=== PATIENT | female | born 1960 | race African-American/Black ===

== ENCOUNTER 2017-06-02 08:40 | Inpatient (IN) ==
[2017-07-07] MEDS ORDERED: FAMOTIDINE PB 20 MG/50 ML BAG IV ONE (06:00)
[2017-07-07] MEDS ORDERED: METOCLOPRAMIDE 10mg/2ml INJECTION IVP ONE (06:00)
[2017-07-07] MEDS ORDERED: DEXAMETHASONE 4 MG/ML INJECTION IVP ONE (06:00)
[2017-07-07] MEDS ORDERED: LIDOCAINE 1% (10mg/ml) 2mL INJ PF SDV ID ONE (06:00)
[2017-07-07] MEDS ORDERED: ACETAMINOPHEN 500 MG TABLET PO ONE (06:00)
[2017-07-07] MEDS ORDERED: ONDANSETRON 4 MG/2 ML INJECTION IVP ONE (06:00)
[2017-07-07] MEDS ORDERED: EPINEPHrine PF 0.25 MG, BUPIVACAINE 0.25% PF 30 ML, KETOROLAC INJ 60 MG in NS 30 ML OPSITE ONE (08:00)
[2017-07-07 08:33] VITALS: BMI 35.4
[2017-07-07] MEDS: LR 1,000 ML IV SCH ×2 (09:05→11:36)
[2017-07-07] MEDS: NOZIN NASAL SWAB NAS SCH ×5 (09:07→21:30)
[2017-07-07] MEDS ORDERED: VANCOMYCIN 1,000 MG INJECTION ONE (09:42)
[2017-07-07] MEDS ORDERED: BUPIVACAINE 0.25% (2.5mg/ml) PF 30ml INJECTION ONE (09:57)
[2017-07-07] MEDS ORDERED: CEFAZOLIN 1 G INJECTION IVP ONE (10:00)
--- NOTE | 2017-07-07 10:02 | Anesthesia Preoperative Report ---
Anesthesia Preoperative Record - Date and Time Date: 07/07/17 Preoperative Diagnosis: Robot Assist Total Knee M17.12 Proposed Procedure: Robot Assist Total Knee NPO Since Date: 07/07/17 NPO Since Time: 00:00 Allergies/Adverse Reactions: Allergies Allergy/AdvReac Type Severity Reaction Status Date / Time latex Allergy Unknown Itching Verified 05/24/17 14:55 mold Allergy Unknown throat Verified 07/05/17 10:00 swelling nut - unspecified Allergy Unknown throat Verified 07/05/17 10:00 swelling raspberry Allergy Unknown mouth sores Verified 05/24/17 14:55 Walnuts Allergy Unknown mouth sores Verified 05/24/17 14:55 mildew Allergy Unknown throat Uncoded 07/05/17 10:00 swells - Vital Signs Vital Signs: Temperature 98.3 F 07/07/17 08:29 Pulse Rate 52 L 07/07/17 09:02 Respiratory Rate 14 07/07/17 08:29 Blood Pressure 164/80 H 07/07/17 08:29 Pulse Oximetry 97 07/07/17 08:29 Height and Weight: Height 1.69 m Weight 100.9 kg Body Mass Index 35.4 - Medications Inpatient Medications: Current Medications Cefazolin Sodium (Kefzol) 2 g IVP PREOP ONE Stop: 07/07/17 10:01 Lactated Ringer's (Lactated Ringers) 1,000 mls @ 50 mls/hr IV .Q20H [facility] Last Admin: 07/07/17 09:05 Dose: 50 mls/hr Isopropyl Alcohol (Nozin Nasal Swab) 1 each GLEN Q1M ISMA Stop: 07/07/17 11:03 Last Admin: 07/07/17 09:15 Dose: 1 each Sodium Chloride (Iv Flush) 10 - 80 ml IV PRN PRN PRN Reason: Flushing Tranexamic Acid (Cyklokapron) 1,000 mg TOP INTRAOP ONE Stop: 07/07/17 10:52 Home Medications: Home Medications Medication Instructions Recorded Confirmed Type Clorpres (clonidine 0.3 1 tab PO BID 09/27/16 07/07/17 History mg-chlorthalidone 15 mg) tablet Lipitor (atorvastatin) 10 mg tablet 10 mg PO HS tab 09/27/16 07/07/17 History Norvasc (amlodipine) 10 mg tablet 10 mg PO HS tab 09/27/16 07/07/17 History Robaxin-750 (Methocarbamol) 750mg 750 mg PO TID 09/27/16 07/07/17 History tablet Tenormin (atenolol) 50 mg tablet 50 mg PO BID 09/27/16 07/07/17 History Ultram (Tramadol) 50 mg tablet 50 mg PO Q6H PRN 09/27/16 07/07/17 History aspirin 325 mg tablet 325 mg PO BID 09/27/16 07/06/17 History cholecalciferol (vitamin D3) 1,000 1,000 unit PO BID 09/27/16 07/07/17 History unit chewable tablet Fluticasone Propionate [Flonase 1 - 2 spray EA NOSTRIL BID PRN 07/05/17 History Allergy Relief] Omeprazole 40 mg PO DAILY 07/05/17 07/07/17 History ergocalciferol (vitamin D2) 50,000 50,000 unit PO DAILY #2 cap 07/06/17 Rx unit capsule Is Patient on Beta Barney?: Yes Beta Barney Last Dose Date/Time: 01/07/2018 1500 - Medical History Respiratory: Reports: Asthma (denies need for inhaler, no recent exacerbatioins) , Dyspnea, Sleep Apnea, Other (chest pressure/tightness per h&p) Cardiovascular: Reports: Hypertension, High Cholesterol Gastrointestional: Reports: Gastroesophageal Reflux Disease (well controlled) Neuro/Musculoskeletal: Reports: HX.MS.OSAR, Back Problems (cervical), 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) Other History: Reports: Anesthesia Reactions (requesting general anesthesia) - Surgical History Respiratory Surgery/Treatments: Reports: CPAP Use (at times) GI Surgery/Treatments: Reports: Cholecystectomy, Hernia Repair (inguinal), Colonoscopy (polyp) Musculoskeletal Surgery/Tx: Reports: Carpal Tunnel Release (left CTR), Knee Arthroscopy (right), Shoulder Arthroscopy (RCR-2017) Reproductive Surgery/Treatment: Reports: Hysterectomy (partial), Other (breast biopsy) Anesthesia Reactions: None Hx Family Anesthesia Reaction: No History of Motion Sickness: No - Social History Smoking Status: Never smoker Hx Chewing Tobacco Use: No Second Hand Exposure: No Substance Use Type: does not use Alcohol Intake Frequency: does not drink - Pertinent Findings Laboratory: CBC and BMP 07/07/17 08:25 03/29/18 08:25 [facility] 07/07/17 08:25 Sodium 145 H Potassium 4.0 Chloride 106 Carbon Dioxide 27 BUN 25.0 H Creatinine 1.2 Glucose 134 H Calcium 10.0 EKG: Sinus Bradycardia - Physical Exam Respiratory Exam: Present: lungs clear, bilateral breath sounds equal Cardiovascular Exam: Present: regular rate and rhythm - Airway Assessment Mallampati Score: III TMD: 4 Fingerbreadths Neck Extension: good Overall Assessment: may be difficult mask vent, may be difficult intubation - ASA ASA Score: 3 - Plan Anesthesia: General Inhalation Gases Peripheral Nerve Block: Saphenous-Left (for post op pain) - Discussion Discussion: Discussed risks/options/alternatives of anesthesia and questions answered. Patient consents. Nursing pain assessment noted. Present for Discussion: spouse, children Attestation Statement: Prior to the delivery of any anesthetic medication, I examined the patient, developed the plan, obtained the patient's consent and discussed the risk and benefits of the procedure with the patient/guardian. - Additional Information Seen by Anesthesia: Yes
[2017-07-07] MEDS ORDERED: ROCURONIUM 50 MG/5 ML INJECTION IVP ONE (10:06)
[2017-07-07] MEDS ORDERED: SUCCINYLCHOLINE 20mg/mL 10mL INJECTION ONE (10:06)
[2017-07-07] MEDS ORDERED: PROPOFOL 20 ML ONE (10:06)
[2017-07-07] MEDS ORDERED: FentaNYL 250 MCG/5 ML INJECTION ONE (10:06)
[2017-07-07] MEDS ORDERED: ROPIVACAINE 0.5% (5mg/ml) 30ml INJ ONE (10:08)
[2017-07-07] MEDS ORDERED: MIDAZOLAM 2mg/2ml INJECTION ONE (10:13)
--- NOTE | 2017-07-07 10:40 | Anesthesia Procedure Note ---
Peripheral Nerve Blockade - Procedure Physician: Kushal Ram MD Date: 07/07/17 Surgical Procedure: left total knee, robotic Discussion: Discussed risks/options/alternatives of anesthesia and questions answered. Patient consents. Nursing pain assessment noted. Block Start: 10:24 Block Stop: 10:26 Blocked Employed: Adductor Canal Indication: Post-Operative Pain Approach: Left Side Confirmed Position: Supine Patient: Consent, Risks/Benefits Discussed, Informed, Post Block Act. Discussed IV Sedation: No (general anesthesia) Initial Vital Signs: Temperature 98.3 F 07/07/17 08:29 Temperature Source Oral 07/07/17 08:29 Pulse Rate 58 L 07/07/17 08:29 Respiratory Rate 14 07/07/17 08:29 Blood Pressure 164/80 H 07/07/17 08:29 Blood Pressure Mean 108 07/07/17 08:29 Blood Pressure Position Sitting 07/07/17 08:29 Pulse Oximetry 97 07/07/17 08:29 Oxygen Delivery Method 07/07/17 08:29 Post Vital Signs: Temperature 98.3 F 07/07/17 08:29 Pulse Rate 52 L 07/07/17 09:02 Respiratory Rate 14 07/07/17 08:29 Blood Pressure 164/80 H 07/07/17 08:29 Pulse Oximetry 97 07/07/17 08:29 Initial Pain Pain Score: 0 Post Block Pain Score: 0 Prep: Chlorhexadine/ETOH Ultrasound Used?: Yes - Injectate Ropivacaine (%): 0.5 Ropivacaine (mL): 30 Was Epi 1:200,000 Used?: No Injection: Injection made incrementally with constant monitoring and negative aspiration every 5 ml
[2017-07-07] MEDS ORDERED: SALINE FLUSH 10ml SYRINGE IV PRN (10:51)
[2017-07-07] MEDS ORDERED: TRANEXAMIC ACID 1,000 MG/10 ML VIAL TOP ONE (10:51)
[2017-07-07] MEDS ORDERED: VANCOMYCIN 1,000 MG INJECTION IAR ONE (10:58)
[2017-07-07] MEDS ORDERED: TRIAMCINOLONE 40mg/ml 1ml INJECTION INJ ONE (10:59)
[2017-07-07] MEDS ORDERED: BUPIVACAINE 0.25% (2.5mg/ml) PF 30ml INJECTION IJ ONE (11:01)
[2017-07-07] MEDS ORDERED: HYDRALAZINE 20 MG/ML INJECTION ONE (12:00)
--- NOTE | 2017-07-07 12:05 | Operative Note ---
- Procedure Preoperative Diagnosis: Left knee primary degenerative joint disease Postoperative Diagnosis: Same as preoperative diagnosis. Surgeon: Jose Ram MD Financial Investment Adviser: Ander Thompson Complications: None. Anesthesia: Spinal. Estimated Blood Loss: See Anesthesia Record. Fluids: Please see Anesthesia Record. Description of Procedure: Mrs. Calvo and her left knee were identified and marked in the preoperative holding area. She was brought back to the operating suite. Spinal anesthetic was administered and she was placed supine on the operating table. The left lower extremity was prepped and draped in my normal sterile fashion. Timeout was performed. The [employer] robotic arm was used during the surgery. She had a correctable varus deformity with laxity in extension. She has subluxation of the tibia laterally on the femur. A standard anterior midline incision followed by medial parapatellar arthrotomy was performed. Anterior fat pad and meniscus were removed. The patella was everted and a patella osteotomy was performed leaving 14 mm of bone. There is near complete loss of cartilage in the medial femoral condyle and large medial osteophytes. She also had large osteophytes within the notch. Tibial and femoral arrays and checkpoints were placed both within the original incision. The bone was then registered with the [employer] robot. Osteophytes were removed and gaps were captured both 90 and 0 degrees with correction. [employer] robotic software was utilized to obtain 16 mm Stem extension and a 10 mm gaps in flexion. The [employer] robotic arm was then used to assist with the bone cuts. Posterior osteophytes and remaining meniscus were removed. Trial components were placed. We used a 5 femur and a 5 tibia with a 9 mm spacer and a 32 patella. She tracked well and was well balanced throughout range of motion. The leg was exsanguinated and the tourniquet inflated to 250 mmHg. The tibia was stamped. The bone was prepared for cementing and components were cemented into place and allowed to cure in extension. The tourniquet was let down and hemostasis obtained with electrocautery. The knee was ranged one more time to ensure good stability, balance and patellar tracking. 1 g of vancomycin powder was then placed into the knee joint. The capsulotomy was then closed with #1 Vicryl. I then left my pharmaceutical assistant to close the subcutaneous tissue with 0V lock vaibhav suture. Running 4-0 Monocryl will be used in the subcuticular layer. Dermabond will be used on the skin followed by sterile dressing. After drapes are removed patient will be taken to recovery room under the care of anesthesia.
[2017-07-07] MEDS: HYDROMORPHONE 2 MG/ML INJECTION IVP PRN ×2 (12:43→12:55)
--- NOTE | 2017-07-07 12:44 | XRay Report ---
Indication: postoperative image PROCEDURE: XR knee LT 2V: Encounter: Initial Comparison: May 04, 2017 Findings: Postoperative changes of left total knee replacement are seen. There is expected postoperative subcutaneous gas. No evidence of hardware failure or acute fracture. No retained radiopaque surgical instruments or sponges. Overlying material causing artifact. Impression: New left total knee prosthesis without evidence of immediate complication. .
[2017-07-07] MEDS ORDERED: ONDANSETRON 4 MG/2 ML INJECTION IVP PRN (13:22)
[2017-07-07] MEDS ORDERED: DiphenhydrAMINE 25 MG CAPSULE PO PRN (13:22)
[2017-07-07] MEDS ORDERED: NOZIN NASAL SWAB NAS ONE (13:22)
[2017-07-07] MEDS ORDERED: LORazepam 1 MG TABLET PO PRN (13:22)
[2017-07-07] MEDS ORDERED: DiphenhydrAMINE 50 MG/ML INJECTION IVP PRN (13:22)
[2017-07-07] MEDS ORDERED: TRAMADOL 50 MG TABLET PO PRN (13:22)
[2017-07-07] MEDS: NS 1,000 ML IV SCH (13:43)
--- NOTE | 2017-07-07 13:49 | Anesthesia Postoperative Note ---
- Date and Time Date: 07/07/17 Time: 13:15 - Status Patient Participated in Evaluation: Patient Participated in Person Vital Signs: Temperature 97.1 F 07/07/17 13:22 Pulse Rate 83 07/07/17 13:20 Respiratory Rate 16 07/07/17 13:20 Blood Pressure 123/65 07/07/17 13:20 Pulse Oximetry 93 07/07/17 13:20 Respiratory Function: Airway Patent Cardiovascular Function: Regular Pulse EKG: Sinus Rhythm Mental Status: Alert and Oriented Pain Intensity: 4 Hydration: IV Infusing Complications During Recover: None Apparent - Follow-Up Instructions Instructions: Per Surgeon
--- NOTE | 2017-07-07 14:33 | Consult Note ---
Consult Information - Data of Consult Consult date: 07/07/17 Requesting Physician: Kushal Ram MD Primary Care Provider: Cesar Diaz MD Family Provider: Cesar Diaz MD - Consult Narrative Reason for consult: intraoperative Hypertension History of present illness: Jeanne is seen today in consultation for intraoperative hypertension. She had a scheduled Left total knee arthroplasty this morning under the care of Dr Ram. Intraoperatively she did have several blood pressures that were 200 systolic, however, blood pressures have resolved postoperatively. Primary care records reviewed, patient does have a known history of hypertension and is currently on amlodipine 10 milligrams daily, atenolol 50 milligrams twice a day , clonidine 0.3 milligrams twice a day. She also underwent cardiac clearance by Dr.Costy Garza - replanting machine crewman in [place]. Patient is seen postoperatively in her room resting with family at her bedside. She currently has no complaints of pain, shortness of breath, chest pain, GI concerns. She has voided since surgery. Past Medical History Patient Stated Medical History Asthma Hypertension. High cholesterol. Obstructive sleep apnea GERD History of CVA Surgical History: Hysterectomy-1996. Hernia repair-2005. Colonoscopy-2013. Cholecystectomy-2013. Carpal tunnel surgery-2015. Breast biopsy 1995. Arthroscopic knee 2012. shoulder surgery-2016 Family History Updates: Mother-COPD, thyroid disease. Father-coronary artery disease with DC. Sibling with high blood pressure - Social History Smoking status: Never smoker Substance use type: does not use Alcohol intake frequency: does not drink Does patient use chewing tobacco?: No Current residence: Apartment/Private Home Social history: PCP Dr Cesar Diaz- [place], [place] Review of Systems All systems PM: 10-point ROS was reviewed, no additional remarkable complaints except (currently at time of examination. Patient denies entire review of systems) Medications Home Medications Medication Instructions Recorded Confirmed Type Clorpres (clonidine 0.3 1 tab PO BID 09/27/16 07/07/17 History mg-chlorthalidone 15 mg) tablet Lipitor (atorvastatin) 10 mg tablet 10 mg PO HS tab 09/27/16 07/07/17 History Norvasc (amlodipine) 10 mg tablet 10 mg PO HS tab 09/27/16 07/07/17 History Robaxin-750 (Methocarbamol) 750mg 750 mg PO TID 09/27/16 07/07/17 History tablet Tenormin (atenolol) 50 mg tablet 50 mg PO BID 09/27/16 07/07/17 History Ultram (Tramadol) 50 mg tablet 50 mg PO Q6H PRN 09/27/16 07/07/17 History aspirin 325 mg tablet 325 mg PO BID 09/27/16 07/06/17 History cholecalciferol (vitamin D3) 1,000 1,000 unit PO BID 09/27/16 07/07/17 History unit chewable tablet Fluticasone Propionate [Flonase 1 - 2 spray EA NOSTRIL BID PRN 07/05/17 History Allergy Relief] Omeprazole 40 mg PO DAILY 07/05/17 07/07/17 History ergocalciferol (vitamin D2) 50,000 50,000 unit PO DAILY #2 cap 07/06/17 Rx unit capsule Allergies Allergy/AdvReac Type Severity Reaction Status Date / Time latex Allergy Unknown Itching Verified 05/24/17 14:55 mold Allergy Unknown throat Verified 07/05/17 10:00 swelling nut - unspecified Allergy Unknown throat Verified 07/05/17 10:00 swelling raspberry Allergy Unknown mouth sores Verified 05/24/17 14:55 Walnuts Allergy Unknown mouth sores Verified 05/24/17 14:55 mildew Allergy Unknown throat Uncoded 07/05/17 10:00 swells Exam Vital Signs: Temperature 97.1 F 07/07/17 14:03 Pulse Rate 76 07/07/17 14:03 Respiratory Rate 16 07/07/17 13:20 Blood Pressure 146/71 H 07/07/17 14:03 Pulse Oximetry 96 07/07/17 14:03 Height/Weight/BMI: Height 1.69 m Weight 100.9 kg Body Mass Index 35.4 - Constitutional Present: no acute distress, well nourished, well developed - Routine HEENT Exam Eye: Present: EOMI ENT: Present: mucous membranes moist, dentition normal - Routine Respiratory Exam Present: CTA bilaterally. Absent: wheezes - Routine Cardiovascular Exam Present: RRR, S1, S2. Absent: murmur - Routine Abdominal Exam Present: soft, normoactive bowel sounds, non distended. Absent: tenderness - Routine Extremities Exam Present: pulses intact Comments: Polar Pack on left knee. Postoperatively - Routine Skin Exam Present: intact, dry, warm - Routine Neurological Exam Present: alert, oriented X3, CN II-XII intact - Routine Psychiatric Exam Present: normal affect Results - Labs CBC & Chem 7: 07/07/17 08:25 07/07/17 08:25 Assessment and Plan (1) S/P total knee arthroplasty Current visit: Yes Status: Acute Assessment and Plan: Impression Status post left total knee arthroplasty-07/07, Dr. Ram Hypertension Asthma GERD Obstructive sleep apnea. Hypercholesterolemia Plan Orthopedic management as per Dr. Ram Intraoperative paper chart reviewed. Patient did have 2 isolated blood pressures close to 200 systolic. Otherwise, pressures remained 120-160 systolic. Patient did receive intraoperative steroids which may also increase Blood pressure continues to be well controlled currently. Patient is asymptomatic. Recommend continuing home medications including antihypertensives, Norvasc, atenolol and clonidine. Work on pain control as this can contribute to elevated blood pressure. Encourage use of incentive spirometry postoperatively. Consulted with PT and OT for postoperative strengthening. The hospitalist services will continue to follow patient in consultation. At time of discharge medical care will return to her primary care provider in [place] Cesar Resuscitation Status: Full Code - Physician Narrative Physician: other (Carrie Sue MD) Narrative: Date: 07/07/17 Time: 1454 Patient seen and examined independently. Agree with above documentation. Patient is getting ready to work with OT. States her pain is well controlled at the moment. no signs of distress. RRR. Good cap refill. Agree with above plan: continue home BP medications, pain control. Monitor vitals. Hospital Course Summary Disclaimer: The visit summary below is not to be considered part of the above Progress Note. Hospital Course: Impression Status post left total knee arthroplasty-07/07, Dr. Ram Hypertension Asthma GERD Obstructive sleep apnea. Hypercholesterolemia Plan Orthopedic management as per Dr. Ram Intraoperative paper chart reviewed. Patient did have 2 isolated blood pressures close to 200 systolic. Otherwise, pressures remained 120-160 systolic. Patient did receive intraoperative steroids which may also increase Blood pressure continues to be well controlled currently. Patient is asymptomatic. Recommend continuing home medications including antihypertensives, Norvasc, atenolol and clonidine. Work on pain control as this can contribute to elevated blood pressure. Encourage use of incentive spirometry postoperatively. Consulted with PT and OT for postoperative strengthening. The hospitalist services will continue to follow patient in consultation. At time of discharge medical care will return to her primary care provider in [place], Dr Cesar Diaz
[2017-07-07] MEDS: ACETAMINOPHEN 325 MG TABLET PO SCH ×3 (16:42→21:28)
[2017-07-07] MEDS: METHOCARBAMOL 750 MG TABLET PO SCH ×2 (16:43→21:27)
[2017-07-07] MEDS: CEFAZOLIN 2 G in NS 50 ML IV SCH (17:57)
[2017-07-07] MEDS ORDERED: SENNOSIDES 8.6 MG TABLET PO SCH (21:00)
[2017-07-07] MEDS ORDERED: AMLODIPINE 10 MG TABLET PO SCH (21:00)
[2017-07-07] MEDS ORDERED: ATORVASTATIN 10 MG TABLET PO SCH (21:00)
[2017-07-07] MEDS: DOCUSATE SODIUM 100 MG CAPSULE PO SCH (21:27)
[2017-07-07] MEDS: ASPIRIN 325 MG TABLET PO SCH (21:27)
[2017-07-07] MEDS: NAPROXEN 220 MG TABLET PO SCH (21:27)
[2017-07-07] MEDS: ATENOLOL 50 MG TABLET PO SCH (21:28)
[2017-07-07 23:14] VITALS: RESP 16
[2017-07-08] MEDS: NS 1,000 ML IV SCH (01:26)
[2017-07-08] MEDS: CEFAZOLIN 2 G in NS 50 ML IV SCH (01:28)
[2017-07-08] MEDS: NOZIN NASAL SWAB NAS SCH ×2 (06:20→15:14)
[2017-07-08] MEDS ORDERED: OMEPRAZOLE 20 MG CAPSULE PO SCH (06:30)
[2017-07-08] MEDS ORDERED: POLYETHYL GLYCOL 3350 17gm PACKET PO SCH (09:00)
--- NOTE | 2017-07-08 09:10 | Progress Note ---
- Date 07/08/17 Subjective: F/U: intraoperative hypertension, s/p total left knee replace on 07/07/[address] Ram. Jeanne is seen this morning while sitting up in her recliner, watching TV. She reports she is feeling very good and complains of mild left thigh aching which she believes is from moving around too much yesterday. She denies any chest pain, shortness of breath, abdominal pain, nausea, vomiting or dysuria. Her appetite good and bowels are moving. Blood pressure improved after reinitiation of home medications. Hemoglobin declined slightly (Hgb 10.4) but she remains asymptomatic. Hypernatremia resolved. Working well with therapy. Objective Vital signs: Temperature 98.2 F 07/08/17 07:24 Pulse Rate 59 L 07/08/17 07:24 Respiratory Rate 16 07/08/17 07:24 Blood Pressure 171/90 H 07/08/17 07:24 Pulse Oximetry 96 07/08/17 07:24 Height/Weight/BMI: Height 5 ft 6.5 in Weight 241 lb 10.026 oz Body Mass Index 35.4 Comments: Patient sitting in recliner, polar pack to left knee, watching TV. - Constitutional Present: no acute distress, well nourished, well developed, obese, cooperative - Routine HEENT Exam Head: Present: normocephalic, atraumatic Eye: Present: PERRL. Absent: conjunctival icterus ENT: Present: mucous membranes moist - Routine Respiratory Exam Present: CTA bilaterally. Absent: rales, respiratory distress, rhonchi, stridor , wheezes, crackles - Routine Cardiovascular Exam Present: RRR, S1, S2 - Routine Abdominal Exam Present: soft, normoactive bowel sounds, non distended, non tender - Routine Extremities Exam Present: edema, pulses intact Comments: SCDs in place. Polar pack to left knee. - Routine Back/Spine/Pelvis Exam Back/Spine: Present: full ROM. Absent: vertebral tenderness - Routine Musculoskeletal Exam Musculoskeletal: Present: moving extremities well - Routine Skin Exam Present: dry, warm. Absent: jaundice Comments: Afebrile. - Routine Neurological Exam Present: alert, oriented X3, CN II-XII intact, moving all extremities, hearing grossly intact, normal speech - Routine Lymphatic Exam Lymphatic: Absent: lymphedema - Routine Psychiatric Exam Present: normal affect, cooperative, good insight, good judgment Results - Labs CBC & Chem 7: 07/08/17 03:51 07/08/17 03:51 Assessment and Plan (1) S/P total knee arthroplasty Current visit: Yes Status: Acute Assessment and Plan: Impression Status post left total knee arthroplasty-07/07, Dr. Ram. Post op anemia (Hgb 10.4) - NEW DIAGNOSIS. Hypernatremia - resolved. Hypertension. Asthma. GERD. Obstructive sleep apnea. Hypercholesterolemia. Plan - 07/08/17. Overall, Jeanne is doing well and making gains. Orthopedic management as per Dr. Ram. Pain is well controlled. Blood pressure improved with reinitiation of home medications. Systolic remains slightly elevated (140-160's). Continue to monitor closely and recommend follow up with cardiology/PCP as outpatient for continue management. Continue to encourage participation with therapy for strengthening and improvement in functional abilities. Monitor post op anemia (Hgb 10.4). Continue bowel motivation. DVT Prophylaxis: SCD's GI Prophylaxis: other (Prilosec) Resuscitation Status: Full Code - Time spent with patient Time with patient PN: 25 minutes - Physician Narrative Physician: other (Dr. Sue) Narrative: Date: 07/08/17 Time: 1247 Patient seen and examined independently. Agree with above documentation. Discussed case with Tiffanie and directed plan of care. Patient reports she is feeling well today, pain is well controlled. She has no new complaints Alert and oriented, NAD Plan: continue pain control, continue home BP medications. Stable for discharge from medical standpoint. Hospital Course Summary Disclaimer: The visit summary below is not to be considered part of the above Progress Note. Hospital Course: Impression Status post left total knee arthroplasty-07/07, Dr. Ram Hypertension Asthma GERD Obstructive sleep apnea. Hypercholesterolemia Plan Orthopedic management as per Dr. Ram Intraoperative paper chart reviewed. Patient did have 2 isolated blood pressures close to 200 systolic. Otherwise, pressures remained 120-160 systolic. Patient did receive intraoperative steroids which may also increase Blood pressure continues to be well controlled currently. Patient is asymptomatic. Recommend continuing home medications including antihypertensives, Norvasc, atenolol and clonidine. Work on pain control as this can contribute to elevated blood pressure. Encourage use of incentive spirometry postoperatively. Consulted with PT and OT for postoperative strengthening. The hospitalist services will continue to follow patient in consultation. At time of discharge medical care will return to her primary care provider in [place], Dr Cesar Diaz Plan - 07/08/17. Overall, Jeanne is doing well and making gains. Orthopedic management as per Dr. Ram. Pain is well controlled. Blood pressure improved with reinitiation of home medications. Systolic remains slightly elevated (140-160's). Continue to monitor closely and recommend follow up with cardiology/PCP as outpatient for continue management. Continue to encourage participation with therapy for strengthening and improvement in functional abilities. Monitor post op anemia (Hgb 10.4). Continue bowel motivation.
[2017-07-08] MEDS: ACETAMINOPHEN 325 MG TABLET PO SCH ×2 (09:14→15:13)
[2017-07-08] MEDS: ASPIRIN 325 MG TABLET PO SCH (09:14)
[2017-07-08] MEDS: METHOCARBAMOL 750 MG TABLET PO SCH ×2 (09:15→15:16)
[2017-07-08] MEDS: NAPROXEN 220 MG TABLET PO SCH (09:15)
[2017-07-08] MEDS: DOCUSATE SODIUM 100 MG CAPSULE PO SCH (09:15)
[2017-07-08] MEDS: ATENOLOL 50 MG TABLET PO SCH (09:16)
--- NOTE | 2017-07-08 10:47 | Orthopedic Progress Note ---
Date: Date: 07/08/17 Time: 1043 Subjective/Severity of Illness: Jeanne is sitting up in the chair this morning. States her pain has been well controlled over night. Nursing report patient requested bed burgess and bedside commode overnight instead of getting up to bathroom. Patient reports she wasn't sure if could get up without assistance. Encouraged patient to ambulate and return to ADLs. Denies soa, chest pain, nausea. Orthopedic Exam Vital signs: Temperature 98.2 F 07/08/17 07:24 Pulse Rate 59 L 07/08/17 07:24 Respiratory Rate 16 07/08/17 07:24 Blood Pressure 171/90 H 07/08/17 07:24 Pulse Oximetry 96 07/08/17 07:24 - Constitutional General Appearance: Present: alert, orientated x3, cooperative, well developed, well nourished - Respiratory Exam Present: CTA bilaterally, non-labored - Cardiovascular Exam Present: Regular Rate/Rhythm, pedal pulses intact - Extremities Exam Present: edema, pulses intact - Dressing Dressing: dry, intact, no drainage - Lymphatic Lymphatic: Absent: lymphedema - Neurological Exam Present: intact to light touch, no deficits - Labs Result Diagrams: 07/08/17 03:51 07/08/17 03:51 Abnormal lab results 07/08/17 07/08/17 Range/Units 03:51 03:51 Hgb 10.4 L D (12-16) GM/DL Chloride 108 H (98-107) MEQ/L BUN 22.0 H (7-17) MG/DL Glucose 185 H (65-110) MG/DL Calculated Osmolality 283 H (261-280) MOSM/KG H & H 07/07/17 07/08/17 Range/Units 08:25 03:51 Hgb 12.0 10.4 L D (12-16) GM/DL Hct 36.5 (36-46) % Orthopedic Assessment and Plan (1) Primary osteoarthritis of left knee Status: Acute Assessment and Plan: Current anti-coagulation protocol with ASA 81mg BID x 6 week and SCDs for VTE prophylaxis. PT/OT services to improve independent function. Discharge Planning per Case Management. - Anticoagulation Therapy Anticoagulation: ASA 81 mg PO BID x6 weeks Hospital Course Summary Disclaimer: The visit summary below is not to be considered part of the above Progress Note. Hospital Course: Impression Status post left total knee arthroplasty-07/07, Dr. Ram Hypertension Asthma GERD Obstructive sleep apnea. Hypercholesterolemia Plan Orthopedic management as per Dr. Ram Intraoperative paper chart reviewed. Patient did have 2 isolated blood pressures close to 200 systolic. Otherwise, pressures remained 120-160 systolic. Patient did receive intraoperative steroids which may also increase Blood pressure continues to be well controlled currently. Patient is asymptomatic. Recommend continuing home medications including antihypertensives, Norvasc, atenolol and clonidine. Work on pain control as this can contribute to elevated blood pressure. Encourage use of incentive spirometry postoperatively. Consulted with PT and OT for postoperative strengthening. The hospitalist services will continue to follow patient in consultation. At time of discharge medical care will return to her primary care provider in [place], Dr Cesar Diaz Plan - 07/08/17. Overall, Jeanne is doing well and making gains. Orthopedic management as per Dr. Ram. Pain is well controlled. Blood pressure improved with reinitiation of home medications. Systolic remains slightly elevated (140-160's). Continue to monitor closely and recommend follow up with cardiology/PCP as outpatient for continue management. Continue to encourage participation with therapy for strengthening and improvement in functional abilities. Monitor post op anemia (Hgb 10.4). Continue bowel motivation.
[2017-07-08] MEDS ORDERED: SENNOSIDES 8.6 MG TABLET PO PRN (11:46)
[2017-07-08 12:25] VITALS: BP 127/80; PULSE 73; TEMP 96.9; O2SAT 98
--- NOTE | 2017-07-08 13:37 | Discharge Summary ---
Orthopedic Discharge Info Date of admission: 07/07/17 08:08 Anticipated date of discharge: 07/08/17 Primary care physician: Cesar Diaz MD Attending Physician: Kushal Ram MD Consults: 07/07/17 08:16 Consult to Anesthesiology [CONS] Routine Reason For Exam: Preoperative Assessment 07/07/17 13:22 Case Management Consult [CONS] Routine Reason For Exam: Discharge Planning DME-Walker [CONS] Routine Height: 5 ft 6.5 in Weight: 100.9 kg Physician [Physician Consult] [CONS] Routine Consulting Provider: Carrie Sue Reason For Exam: Medical management Ordering Provider has Notified [employer]er: Yes Total Joint Outpatient Therapy [CONS] Routine Comment: Remove dressing in 2 weeks - Discharge Diagnosis (1) Primary osteoarthritis of left knee Status: Acute - Laboratory Result Diagrams: 07/08/17 03:51 07/08/17 03:51 Laboratory: Abnormal lab results 07/08/17 07/08/17 Range/Units 03:51 03:51 Hgb 10.4 L D (12-16) GM/DL Chloride 108 H (98-107) MEQ/L BUN 22.0 H (7-17) MG/DL Glucose 185 H (65-110) MG/DL Calculated Osmolality 283 H (261-280) MOSM/KG H & H 07/07/17 07/08/17 Range/Units 08:25 03:51 Hgb 12.0 10.4 L D (12-16) GM/DL Hct 36.5 (36-46) % Orthopedic Discharge HPI - HPI Comments This patient was admitted for elective surgical tx of end stage degenerative joint disease that failed to respond to conservative treatment. Further details of this is found in the admission H&P. Orthopedic Hospital Course Hospital course: 07/08/17 13:33 After appropriate preoperative clearance and signing of operative consent, the patient was given IV antibiotics, according to orthopedic protocol. The patient was taken to the operating room and underwent elective total knee arthroplasty. Following surgery, antibiotics were discontinued less than 24 hours according to joint protocol. Appropriate anticoagulants were initiated and SCDs added for DVT prevention. The dressing was clean, dry, and intact. Pain control was obtained via multimodal approach. Bowel motivation addressed with scheduled and PRN medications. Early mobilization was initiated through PT services. Discharge arrangements made by a collaborative effort between the patient and Case Management. Pt had pre op and intraop hypertension. Hospitalist service was consulted to manage this but no change in her home medications were recommended. Her pressures gradually returned to normal levels before discharge. Follow-up is scheduled in 2-[address] Ram. Discharge instructions given by orthopedic providers and nursing staff at discharge. Discharge condition was good. Care extended to > 2 midnight stays?: No Discharge Plan - Med Rec/Dispo Referrals/Follow Up: Kushal Ram MD [Physician] - 08/01/17 2:15 pm [facility] Instructions: [facility] Postop Instructions Additional Instructions: PHYSICAL THERAPY AT [facility] [place] ([address]) JULY 12 AT 11:30 AM. COME EARLY TO CHECK IN OR FILL OUT PAPERWORK AHEAD OF TIME AT [email or web address] P# [phone] Prescriptions: New Docusate Sodium [Colace] 100 mg PO BID cap Milk of Magnesia [Mom] 30 ml PO DAILY udc Naproxen [Aleve (Naproxen) 220 mg] 440 mg PO BIDWM tab PEG 3350 17gm PACKET [Miralax] 17 gm PO DAILY packet Tramadol [Ultram] 50 - 100 mg PO Q6H PRN #50 tab PRN Reason: Pain Acetaminophen [Tylenol] 650 mg PO QID tab Continue Omeprazole 40 mg PO DAILY Fluticasone Propionate [Flonase Allergy Relief] 1 - 2 spray EA NOSTRIL BID PRN PRN Reason: Allergy Symptoms Tenormin (atenolol) 50 mg tablet 50 mg PO BID Robaxin-750 (Methocarbamol) 750mg tablet 750 mg PO TID cholecalciferol (vitamin D3) 1,000 unit chewable tablet 1,000 unit PO BID Lipitor (atorvastatin) 10 mg tablet 10 mg PO HS tab Clorpres (clonidine 0.3 mg-chlorthalidone 15 mg) tablet 1 tab PO BID aspirin 325 mg tablet 325 mg PO BID Norvasc (amlodipine) 10 mg tablet 10 mg PO HS tab ergocalciferol (vitamin D2) 50,000 unit capsule 50,000 unit PO DAILY #2 cap Discontinued Ultram (Tramadol) 50 mg tablet 50 mg PO Q6H PRN PRN Reason: Pain - Disposition 01 Discharged Home, Self-Care - Dismissal Complete Discharge Instructions are:: Complete
[2017-07-09] MEDS ORDERED: BISACODYL 10 MG SUPPOSITORY RECTALLY SCH (20:00)
== END 2017-07-08 16:25 | disposition home or self-care (01) | DRG 470 ==
LOC: NMC.PERIOP 07-07 08:08 → SRG 07-07 13:20
PROVIDERS: ADMIT Orthopaedic Surgery; ATTEND Orthopaedic Surgery